=== PATIENT | male | born 1985 | race African-American/Black ===

== ENCOUNTER 2018-02-01 09:33 | Inpatient (IN) | payer OTHER ==
[~2018-02-01] VITALS: Ht 185.4 cm; Wt 60.9 kg
[~2018-02-01 09:33] MED LIST: CARBAMIDE15 ML OTIC; CYCLOBENZAPRINE10 M1 PO; DIAZEPAM5 M1 PO; DULOXETINE HCL60 MG PO; VALIUM5 M2 PO
--- NOTE | 2018-02-01 09:49 | ED PSYCHIATRIC COMPLAINT ---
History of Present Illness General Chief Complaint: Psychiatric Related Complaint Stated Complaint: "PT WANTS TO HARM OTHERS" Source: patient Exam Limitations: no limitations Vital Signs & Intake/Output Vital Signs & Intake/Output Vital Signs Date Time Temp Pulse Resp B/P B/P Pulse O2 O2 Flow FiO2 Mean Ox Delivery Rate 02/02 0844 98.3 64 16 101/70 97 02/02 0618 97.5 79 18 99/55 98 Room Air 02/02 0430 97.1 76 18 113/64 98 Room Air 02/02 0204 76 16 110/62 98 Room Air 02/01 2208 97.3 90 18 116/68 99 Room Air 02/01 2036 96.8 81 18 119/68 100 Room Air 02/01 1745 97.4 90 18 123/76 100 Room Air 02/01 1416 98.2 76 18 116/82 98 Room Air ED Intake and Output 02/02 0000 02/01 1200 Intake Total Output Total Balance Patient 140 lb Weight Weight Reported by Patient Measurement Method Allergies Coded Allergies: NO KNOWN ALLERGIES (07/30/13) Reconcile Medications Carbamide Peroxide (Carbamide) 6.5 % DROPS 1 GTT OTIC BID EAR WAX Cyclobenzaprine HCl 10 MG TABLET 1 TAB PO QAM MUSCLE RELAXER (Reported) Diazepam 5 MG TABLET 10 MG PO QHS MUSCLE SPASMS (Reported) Diazepam (Valium) 5 MG TABLET 0.5 TAB PO QAM MUSCLE SPASMS (Reported) Duloxetine HCl 60 MG CAPSULE.DR 120 MG PO DAILY TURRETS (Reported) Triage Note: PT PRESENTED TO TRIAGE, STATES, "I WANT TO KILL SOMEBODY". "I WANT TO BE PUT AWAY.". AGITATED ANSWERING QUESTIONS, BUT IS CO-OPERATIVE. DENIES DRUG USE, DRANK ALCOHOL LAST PM. DENIES SI. Triage Nurses Notes Reviewed? yes HPI: Patient presents to the emergency department with homicidal ideations. Patient states that he does want to kill society. There is nonspecific person. He denies any suicidal ideations. Patient states that he needs to be on medications but he is not on anything. Patient admits to drinking last night and using cocaine 2 days ago. Patient denies any chest pain. Patient is refusing to make eye contact and is being uncooperative. (Ramón AMARAL,Tien Tirado) Past History Travel History Traveled to [place] past 21 day No Medical History Any Pertinent Medical History? see below for history Neurological: Tourette syndrome EENT: NONE Cardiovascular: NONE Respiratory: NONE Gastrointestinal: NONE Hepatic: NONE Renal: NONE Musculoskeletal: NONE Psychiatric: NONE Endocrine: NONE History of MRSA: No History of VRE: No History of CDIFF: No Surgical History Surgical History: unobtainable, NONE Psychosocial History Who do you live with Sister Services at Home Nursing What is your primary language Argentine Tobacco Use: Never used ETOH Use: occasional use Illicit Drug Use: cocaine Family History Family History, If Any: MOTHER Relation not specified for: FH: thyroid disease Hx Contributory? No (Tien Melgar MD) Review of Systems Review of Systems Constitutional: Reports: no symptoms. EENTM: Reports: no symptoms. Respiratory: Reports: no symptoms. Cardiovascular: Reports: no symptoms. GI: Reports: no symptoms. Genitourinary: Reports: no symptoms. Musculoskeletal: Reports: no symptoms. Skin: Reports: no symptoms. Neurological/Psychological: Reports: see HPI. Hematologic/Endocrine: Reports: no symptoms. Immunologic/Allergic: Reports: no symptoms. All Other Systems: Reviewed and Negative (Ramón AMARAL,Tien Tirado) Physical Exam Physical Exam General Appearance: well developed/nourished, alert, awake Head: atraumatic Eyes: Bilateral: PERRL, EOMI. Ears, Nose, Throat: normal pharynx, normal ENT inspection, hearing grossly normal Neck: normal inspection, supple Respiratory: normal breath sounds Cardiovascular: regular rate/rhythm Gastrointestinal: soft, non-tender Extremities: normal range of motion Neurological/Psychiatric: no motor/sensory deficits, awake, agitated, alert, oriented x 3 Appearance/Memory/Insight: appropriate appearance Behavoir/Eye Contact/Speech: avoids eye contact, uncooperative Thoughts/Hallucinations: normal thought pattern, no apparent hallucination Skin: intact, normal color, warm/dry SAD PERSONS Done? CRISIS CONSULT OBTAINED (Ramón AMARAL,Tien Tirado) Progress Differential Diagnosis: drug intoxication, drug overdose, drug withdrawal, electrolyte abnormality Plan of Care: Orders Procedure Date/time Status Regular Diet 02/02 D Active ED Holding Orders 02/02 1222 Active Admit to inpatient 02/02 1222 Active Code Status 02/02 122 Active Continuous Observation Monitor 02/02 0700 Active Regular Diet 02/01 D Complete Current Medications Sig/Henry Start time Last Medication Dose Stop Time Status Admin Trazodone HCl 50 MG AT BEDTIME 02/01 2100 UNVr 02/01 (Desyrel) 1938 Diphenhydramine HCl 50 MG ONCE ONE 02/01 1000 CAN (Benadryl) 02/01 1001 Haloperidol 5 MG ONCE ONE 02/01 1000 CAN (Haldol) 02/01 1001 Lorazepam 2 MG ONCE ONE 02/01 1000 CAN (Ativan) 02/01 1001 Initial ED EKG: NSR, nonspecific ST T wave chg Prior EKG: unchanged Hand-Off Endorsed To: Markie Cintron MD Endorsed Time: 1899 Pending: consult (BED SEARCH) Comments: Patient has been seen and evaluated by the etl developer. A bed search is underway. (Tien Melgar MD) Hand-Off Endorsed To: Finn Reyes DO Endorsed Time: 699 Pending: consult (Markie Cintron MD) Comments: I assumed care of this patient at shift change while awaiting definitive evaluation by crisis. They did see the patient and they have made the decision to hospitalize him to their service for further workup. Stable for the duration of his emergency department care. (Finn Reyes DO) Departure Departure Disposition: STILL A PATIENT Condition: Stable Clinical Impression Primary Impression: Depression Referrals: Mal Marley APRN (PCP/Family) Departure Forms: Customer Survey General Discharge Information (Tien Melgar MD) Finn Reyes DO Endorsed Time: 699 Pending: consult (Markie Cintron MD) Departure Departure Disposition: STILL A PATIENT Condition: Stable Clinical Impression Primary Impression: Depression Referrals: Mal Marley APRN (PCP/Family) Departure Forms: Customer Survey General Discharge Information (Tien Melgar MD)
[2018-02-01 10:23] LABS: ABSOLUTE BASOPHIL COUNT 0 /CUMM (0.0-0.2); ABSOLUTE EOSINOPHIL COUNT 0.5 /CUMM (0.0-0.7); ABSOLUTE GRANULOCYTE CT 2.8 /CUMM (1.4-6.5); ABSOLUTE LYMPH COUNT 1.6 /CUMM (1.2-3.4); ABSOLUTE MONOCYTE COUNT 0.5 /CUMM (0.10-0.60); BASOPHIL % 0.4 % (0.0-2.0); EOSINOPHIL % 8.9 % (0-5); GRANULOCYTE % 51.1 % (42.2-75.2); HEMATOCRIT 41.2 % (42-52); MEAN CORPUSCULAR HGB 30.6 PG (27.0-31.0); MEAN CORPUSCULAR HGB CONC 33.2 G/DL (33.0-37.0); MEAN CORPUSCULAR VOLUME 92.4 FL (80.0-94.0); MEAN PLATELET VOLUME 8.1 FL (7.4-10.4); PLATELET COUNT 252 /CUMM (130-400); RBC DISTRIBUTION WIDTH 14.2 % (11.5-14.5); RED BLOOD CELL CT 4.46 /CUMM (4.70-6.10); WHITE BLOOD CELL COUNT 5.4 /CUMM (4.8-10.8)
--- NOTE | 2018-02-01 11:57 | ED PSYCH CRISIS CONSULTATION ---
Crisis Consult Basic Assessment Date of Consult: 02/01/18 Responsible Person/Accompanied By: self Insurance Authorization: Insurance #1: Insurance name: NENA AGUILAR Phone number: Policy number: [id number] Group number: Authorization number: ED Provider: Patient's ED Provider: Tien Melgar MD Primary Care Physician: Patient's PCP: Mal Marley APRN PCP's Current Psychiatrist: n/a Chief Complaint: Psychiatric Related Complaint Patient's Quote: "I want to hurt somebody." Present Illness: The pt is a 32yo single male who walked to [place] and stated I want to kill somebody. During this assessment the pt presented alert, oriented and irritable. The pt made poor eye contact, his speech was goal directed. The pt stated I want to hurt somebody and denied any specific targets or plan. The pt denies SI, AH and VH. The pt reports SI in the past without plan or intent. The pt presents as hopeless and helpless. The pt reports poor sleep for the past 2 months, poor concentration and poor appetite. The pt made loud grunting sounds several times during this assessment that he stated are part of his Tourettes Disorder. The pt stated when he is off drugs he has no problems with his appetite. The pt reports he has been on the street for days and has no support. The pt stated he is homeless and has been staying at night with either his sister or other acquaintances. The pt reports his sisters are junkies and not a support. The pt reports he will not harm himself stating I love my kids and love myself. The pt denies any past inpatient or outpatient behavioral health treatment. The pt reports he was referred to [facility] for outpatient substance abuse treatment but did not engage due to his drug use. The pt reports he was prescribed Cymbalta by [facility] but did not take it due to his drug use. The pt stated he was prescribed Diazepam for sleep while in [facility]. The pt reports he recently tried unsuccessfully to admit himself to several inpatient drug facilities. The pt reports he has an intake with [facility] in February. C-SSRS completed and placed in the pts chart. The pts toxicology screen is positive for Cocaine and Cannabis. The pt reports his primary drug is cocaine which he smokes and snorts. The pt reports his last use was in the evening on 02/02/18. The pt stated he has been using approximately $130 of cocaine daily. The pt refused to discuss how he generates income. The pt stated he does not use Heroin daily and denies experiencing Heroin withdrawal. The pt reports he last used Heroin 4 days ago. The pt denies ever being on Suboxone or Methadone. The pt reports he inconsistently smokes marijuana and inconsistently drinks alcohol. The pt has several past presentations to [facility] ED for complaints related to his drug use. The pt tested positive for Opiates, Cocaine and Cannabis during these past ED visits. The pt reports he was released from [facility] July 2017 on drug related charges. The pt reports he was afraid he would be sent back to [facility] due to Care stating the pt was not cooperating with them. The pt reports this claim was false and he did not end up returning to [facility]. The pt stated his next court date is 02/04/18. The pt reports he was doing well until his drug use became out of control at approximately age 28. The pt reports he lost his apartment and does not have contact with his 2 children due to his drug use. The pt reports he has an 8yo girl and 4yo son that each live with their mothers. Pts current presentation and hx discussed with Dr. Ruiz, plan is for inpatient admission. Dr. Ruiz stated the pt is to be placed on a PEC if he disagrees with hospitalization. The pt stated he is in agreement with inpatient treatment. Discussed a bed search will be conducted due to no beds available at [facility]. Patient's Address: [address] [place] [address] [place] [address] Other Phone Number: Who Do You Live With? Sister Family/Informants Interviewed: no family/collateral ID'd Allergies - Coded Allergies: NO KNOWN ALLERGIES (07/30/13) Current Medications - Scheduled Medications Carbamide Peroxide (Carbamide) 6.5 % DROPS 1 GTT OTIC BID EAR WAX 7 Days Prescribed by Kim Solomon on 06/17/17 Cyclobenzaprine HCl 10 MG TABLET 1 TAB PO QAM MUSCLE RELAXER #30 (Reported) Entered as Reported by Lindsay Yeh on 09/30/17 2052 Diazepam 5 MG TABLET 10 MG PO QHS MUSCLE SPASMS #75 (Reported) Entered as Reported by Lindsay Yeh on 06/14/172050 Diazepam (Valium) 5 MG TABLET 0.5 TAB PO QAM MUSCLE SPASMS (Reported) Entered as Reported by Lindsay Yeh on 06/14/172050 Duloxetine HCl 60 MG CAPSULE.DR 120 MG PO DAILY TURRETS #60 (Reported) Entered as Reported by Lindsay Yeh on 06/14/172049 Laboratory Results: Laboratory Tests 02/01/18 1010: Serum Alcohol < 10.0 02/01/18 1010: Anion Gap 11, Estimated GFR > 60, BUN/Creatinine Ratio 14.4, Glucose 94, Calcium 9.4, Total Bilirubin 0.3, AST 22, ALT 12 L, Alkaline Phosphatase 80, Troponin I < 0.01, Total Protein 7.3, Albumin 4.4, Globulin 2.9, Albumin/Globulin Ratio 1.5 , CBC w Diff NO MAN DIFF REQ, RBC 4.46 L, MCV 92.4, MCH 30.6, MCHC 33.2, RDW 14.2, MPV 8.1, Gran % 51.1, Lymphocytes % 30.1, Monocytes % 9.5 H, Eosinophils % 8.9 H, Basophils % 0.4, Absolute Granulocytes 2.8, Absolute Lymphocytes 1.6, Absolute Monocytes 0.5, Absolute Eosinophils 0.5, Absolute Basophils 0, Urine Opiates Screen 148, Methadone Screen 40, Barbiturate Screen 62, Ur Phencyclidine Scrn < 6.00, Amphetamines Screen < 100, U Benzodiazepines Scrn < 85, Urine Cocaine Screen > 1000.0 H, Urine Cannabis Screen > 80.00 H, Urinalysis MOD H, Urine Color YEL, Urine Clarity CLDY H, Urine pH 8.0, Ur Specific Edison 1.020, Urine Protein NEG, Urine Ketones NEG, Urine Nitrite NEG, Urine Bilirubin NEG, Urine Urobilinogen 0.2, Ur Leukocyte Esterase NEG, Ur Microscopic SEDIMENT EXAMINED, Urine Hemoglobin NEG, Urine Glucose NEG (Daryl Mueller) Past History Past Medical History Neurological: Tourette syndrome EENT: NONE Cardiovascular: NONE Respiratory: NONE Gastrointestinal: NONE Hepatic: NONE Renal: NONE Musculoskeletal: NONE Psychiatric: NONE Endocrine: NONE Past Surgical History Surgical History: unobtainable, NONE Psychosocial History Strengths/Capabilities: Requesting help, in agreement with plan for treatment, able to articulate needs Physical Limitations (Interventions): Current hearing loss Psychiatric Treatment History Psych Treatment Psychiatric Treatment No Diagnosis by History: Tourette's Syndrome Substance Use/Abuse History Drug Use/Abuse 1 Substances Used/Abused Yes Substance Used/Abused Crack Cocaine First Use age 28 Last Used 01/31/18 How much used/taken $130 per day (cocaine and crack) How often daily For how long 4 years Route of use inhale Drug Use/Abuse 2 Substances Used/Abused Yes Substance Used/Abused Cocaine First Use age 28 Last Used 01/31/18 How much used/taken $130 per day (crack and cocaine) How often daily For how long 4 years Route of use snort Drug Use/Abuse 3 Substances Used/Abused Yes Substance Used/Abused Marijuana First Use pt unsure Last Used 01/31/18 How much used/taken Pt unable to quantify, reports "small amount" How often pt reports 1-2x per week For how long pt reports a long hx Route of use inhale Drug Use/Abuse 4 Substances Used/Abused Yes Substance Used/Abused Heroin First Use pt reports age 30 Last Used pt reports 4 days ago How much used/taken pt reports 1 bag How often pt reports his use has declined to 1x per week For how long 2 years Route of use snort Drug Use/Abuse 5 Substances Used/Abused Yes Substance Used/Abused Alcohol First Use pt unsure Last Used 01/31/18 How much used/taken pt reports usually 1-2 beers How often 1-2x per week For how long pt reports a long hx Route of use ingest Substance Abuse Treatment Substance Abuse Treatment Past Substance Abuse TX Yes Inpatient Treatment No Outpatient Treatment Yes Location of Treatment Pt reports [facility] Reason for Treatment Cocaine, Heroin Dates of Treatment pt reports last date within 6 months ago Response to Treatment poor (Sammi WALKER,Daryl Ortega) Current Mental Status Mental Status Orientation: Person, Place, Situation Affect: Angry (Irritable), Depressed, Hopeless, Sad Speech: WNL Neuro-vegetative: Anhedonia, Appetite Decreased, Concentration Poor, Helpless, Sleep Disturbance Appearance Appearance- Dress/Hygiene: appropriate Behaviors Thought Process: WNL Thought Content: WNL Memory: WNL Insight: Poor SI/HI Risk Assessment Past Suicidal Ideation/Attempts Yes Current Suicidal Ideation/Att No Past Homicidal Ideation/Att: No Current Homicidal Ideation/Attempts Yes Degree of Intent: Thoughts/No Intent Danger To: Others Gravely Disabled: Inability, Lack of Insight, Poor Impulse Control, Poor Judgment Risk Factors: high anxiety/distress, substance abuse, isolate/no social support, poor impulse control, lack of outcome concern, male, limited support Lethality Ratin PTSD Checklist PTSD Done? patient declined ED Management Sitter: Yes Restraints: No (Daryl Mueller) DSM5/PS Stressors/Medical Prob Diagnosis' (DSM 5, Stressors, Medical): F32.9 Unspecified Depressive Dis F14.20 Stimulant Use Disorder, Cocaine, Severe F11.20 Opioid Use Disorder, Moderate Current GAF: 29 (Daryl Mueller) Departure Disposition Psych Medical Clearance Date: 02/01/18 Medically Cleared at: 1030 Time Started: 1030 Time Ended: 1110 Psychiatrist Consulted: Dr. Ruiz Date Disposition Established: 02/01/18 Time Disposition Established: 1130 Plan for Disposition - Modality: Bed Search Rationale for Disposition: Pt presents with significant risk factors requiring hospitalization. Type of IP Admission: Voluntary Referrals Mal Marley APRN (PCP/Family) (Daryl Mueller) Addendum Addendum Evening shift evaluation: Pt states he hasn't slept in days and "needs something to sleep, my chest is hurting and I've a few days ago I was here because I couldn't feel my feet", he offers "I know you all think I'm bugging out but I need to sleep". Dr. Melgar ordered Trazodone and it was administered. Pt remains a bed search, he is aware. (Margot Everett LCSW) Addendum 02/02/18: Pt was laying on his bed with eyes closed. When asked if he was sleeping he stated "yes". Crisis asked patient how his night was and pt said ok. When asked if the Trazodone helped him sleep he stated no. It should be noted that per patient notes, patient was sleeping from approximately 11pm to 6am. Pt continues to report sleep disturbances. Pt reports nothing has changed since yesterday when asked about thoughts to hurt people. He denies SI today as he did yesterday. Bed Search vs admission to [facility] based on bed availabilty today. (Steph CUEVAS,Monet)
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
[2018-02-02 13:11] VITALS: BP 125/66
[2018-02-02 15:43] VITALS: BP 122/76
--- NOTE | 2018-02-02 15:53 | SOCIAL WORKER SOCIAL HX PSYCH ---
Social History Basic Assessment Insurance Authorization: Insurance #1: Insurance name: [employer] [facility] Phone number: Policy number: [id number] Group number: Authorization number: Curr Source of Income/Entitlements: SSDI Primary Care Physician: Patient's PCP: Mal Marley APRN PCP's Present Problem: The pt is a 32yo single male who walked to [place] and stated I want to kill somebody. During this assessment the pt presented alert, oriented and irritable. The pt made poor eye contact, his speech was goal directed. The pt stated I want to hurt somebody and denied any specific targets or plan. The pt denies SI, AH and VH. The pt reports SI in the past without plan or intent. The pt presents as hopeless and helpless. The pt reports poor sleep for the past 2 months, poor concentration and poor appetite. The pt made loud grunting sounds several times during this assessment that he stated are part of his Tourettes Disorder. The pt stated when he is off drugs he has no problems with his appetite. The pt reports he has been on the street for days and has no support. The pt stated he is homeless and has been staying at night with either his sister or other acquaintances. The pt reports his sisters are junkies and not a support. The pt reports he will not harm himself stating I love my kids and love myself. The pt denies any past inpatient or outpatient behavioral health treatment. The pt reports he was referred to [facility] for outpatient substance abuse treatment but did not engage due to his drug use. The pt reports he was prescribed Cymbalta by [facility] but did not take it due to his drug use. The pt stated he was prescribed Diazepam for sleep while in [facility]. The pt reports he recently tried unsuccessfully to admit himself to several inpatient drug facilities. The pt reports he has an intake with [facility] in February. C-SSRS completed and placed in the pts chart. The pts toxicology screen is positive for Cocaine and Cannabis. The pt reports his primary drug is cocaine which he smokes and snorts. The pt reports his last use was in the evening on 02/02/18. The pt stated he has been using approximately $130 of cocaine daily. The pt refused to discuss how he generates income. The pt stated he does not use Heroin daily and denies experiencing Heroin withdrawal. The pt reports he last used Heroin 4 days ago. The pt denies ever being on Suboxone or Methadone. The pt reports he inconsistently smokes marijuana and inconsistently drinks alcohol. The pt has several past presentations to [facility] ED for complaints related to his drug use. The pt tested positive for Opiates, Cocaine and Cannabis during these past ED visits. The pt reports [facility] on drug related [facility]. The pt reports he was afraid he would be sent back to [facility] due to Care stating the pt was not cooperating with them. The pt reports this claim was false and he did not end up returning to [facility]. The pt stated his next court date is 02/04/18. The pt reports he was doing well until his drug use became out of control at approximately age 28. The pt reports he lost his apartment and does not have contact with his 2 children due to his drug use. The pt reports he has an 8yo girl and 4yo son that each live with their mothers. Primary Language? Solomon Islander Language(s) Spoken At Home: [place] Islander Living Situation Rents or Owns Home? rents (Stays with friends) Other Living Arrangement: stays with friends Feel Safe Where You Are Living Yes Feel Safe in Relationships? Yes Comments: Pt stated that he doesn't have friends. He has associates. Allergies - Coded Allergies: NO KNOWN ALLERGIES (NONE 02/02/18) Current Medications - Scheduled Medications Carbamide Peroxide (Carbamide) 6.5 % DROPS 1 GTT OTIC BID EAR WAX 7 Days Prescribed by Kim Solomon on 06/17/17 Cyclobenzaprine HCl 10 MG TABLET 1 TAB PO QAM MUSCLE RELAXER #30 (Reported) Entered as Reported by Lindsay Yeh on 06/14/172051 Diazepam 5 MG TABLET 10 MG PO QHS MUSCLE SPASMS #75 (Reported) Entered as Reported by Lindsay Yeh on 06/14/172050 Diazepam (Valium) 5 MG TABLET 0.5 TAB PO QAM MUSCLE SPASMS (Reported) Entered as Reported by Lindsay Yeh on 06/14/172050 Duloxetine HCl 60 MG CAPSULE.DR 120 MG PO DAILY TURRETS #60 (Reported) Entered as Reported by Lindsay Yeh on 06/14/172049 Past History Past Medical History Neurological: Tourette syndrome EENT: NONE Cardiovascular: NONE Respiratory: NONE Gastrointestinal: NONE Hepatic: NONE Renal: NONE Musculoskeletal: NONE Psychiatric: NONE Endocrine: NONE Past Surgical History Surgical History: unobtainable, NONE /Family History Place/Country of Origin: [place], [place] Childhood Family Constellation: Pt lived with mother and 6 siblings for periods. At grade school age pt was sent to foster care and various group homes. Mother was a substance abuser. Father was absent. Primary Childhood Caretakers: foster care and group homes. Family Life During Childhood: Pt was in and out of foster care and group homes. DCF Involvement? Yes Explain: Pt was taken away from mother due to mother's substance abuse. Relationship w/Mother: Pt has an okay relationship with mother now but blames her due to her substance abuse history and abandonment. Relationship w/Father: Pt does not have a relationship with father Any Sibling(s)? Yes Sibling's Gender(s)/Age(s): female Sibling 1:, female Sibling 2:, male Sibling 3:, female Sibling 4:, male Sibling 5: Relationship w/Sibling(s): Pt stated he has 4 sisters and 2 brothers. Relationship with siblings is okay. Relationship w/Friends: Pt stated that he doesn't have friends. He calls them associates. Family Psych/Sub Abuse/Add Hx: drug of choice Other Comments: Pt stated that mother has a substance abuse problem as well as some of his siblings. Abuse/Trauma History Trauma History/Current Trauma: Denies History of Trauma/Abuse Treatment? No Legal History Legal Guardian/Address/Phone: n/a Current Legal Status: Has court on 02/04/18 for sales of narcotics charge. Pt also stated that although he is not on probabtion he has to see an officer regularly. Pending Court Dates: 02/04/18 Have you ever been arrested Yes Number of Arrests: 3 Hx of Juvenile Legal Charges? Yes If Yes: unknown Hx of Adult Legal Charges? Yes If Yes: misdemeanor, felony List/Date Most Recent Lgl Chgs: Court on 02/04/18 for Sales of Narcotics charge. Chgs/Dts/Incarcerations/Sentnc Pt stated that he has been incarcerated in the past. Civil Proceedings: None reported. Domestic Relations Court: Unknown Child Protective Serv Involvmnt None Drafter Topographical Name unknown Psychosocial History Primary Support System: No supports. Pt stated that he is involved with DDS services. Strengths/Capabilities: Requesting help, in agreement with plan for treatment, able to articulate needs Weaknesses: Significant substance abuse and criminal history. Physical Limitations (Interventions): Current hearing loss Last Physical: A few months ago History of Seizures? No History of Blackouts? No ADL Limitations: None reported. Roy/Social/Peer Relations Pt stated that he does not have friends. He calls them associates. Meaningful Activities: Pt stated that music is his life and he tries to read. Childhood Roman Catholic: no yarsani stated Current Confucianist Affiliation: no yarsani stated Is Spirituality Important to You? No Patient's Ethnicity: Cultural/Ethnic Issues: None reported. Are There Developmental Issues? Yes If Yes, Explain: Pt stated that he has DDS services. Also Tourette's Psychiatric Treatment History Psych Treatment Inpatient Treatment No Diagnosis: Tourette's Syndrome Risk Factors: substance abuse, isolate/no social support, poor impulse control, lack of outcome concern, male, limited support Substance Use/Abuse History Drug Use/Abuse:Min 12 mo hx Substance Used/Abused Heroin First Use 30 Last Used 5 days ago How much used/taken 1 bag How often decreased to 1x/week For how long 2 years Route of use snort Have Had Periods of Sobriety? No Explain: Pt stated that he has not had significant periods of sobriety. Explain: Pt has not had significant periods of sobriety. Have You Ever Attended AA? No Do You Attend AA Currently? No Do You Have a Sponsor? No Other Community Resources Used: None reported. Symptoms of Use: cocaine is drug of choice, last using $130 worth of cocaine on 02/01/18. Pt was also positive for marijuana. Substance Abuse Treatment Substance Abuse Treatment Inpatient Treatment No Outpatient Treatment Yes Location of Treatment Pt reports [facility] Reason for Treatment Cocaine, Heroin Dates of Treatment pt reports last date within 6 months ago Response to Treatment poor Sexual History Sexual Concerns: None known Education History Highest Level of Education: Pt stated that he completed the 8th grade. Highest Grade Completed: 8 Vocational Year Completed: n/a Number of College Years: 0 College Degree/Major: n/a Other Degree(s): None. HX of Learning Difficulties: Learning Disabilities Barriers to Learning: Difficulty learning Special Communication Needs: None reported Employment History Employment Disability Not in Labor Force: Disabled Vocation/Occupational Hx: Pt stated he had worked at [employer] in past. No. of Jobs in Last 5 Years: 2 Attendance: Absenteeism Performance: Average History Have You Been in The ? No Current Mental Status Mental Status Orientation: Person, Place, Situation Affect: Hopeless, Sad Speech: Soft, WNL Neuro-vegetative: Anhedonia, Appetite Decreased, Concentration Poor, Energy Decreased, Helpless, Sleep Disturbance Appearance Appearance- Dress/Hygiene: appropriate, pt showered this morning Behaviors Thought Process: WNL Thought Content: WNL Memory: WNL Insight: Poor SI/HI Risk Assessment Past Suicidal Ideation/Attempts Yes Current Suicidal Ideation/Att No Past Homicidal Ideation/Att: No Current Homicidal Ideation/Attempts Yes Degree of Intent: Thoughts/No Intent Danger To: Others Gravely Disabled: Inability, Lack of Insight, Poor Impulse Control, Poor Judgment Risk Factors: High Anxiety/Distress, Isolated/no social suppor, Male, Poor impulse control, Substance Abuse Lethality Ratin - Conclusion and Recommendations for treatment - and discharge planning
[2018-02-02 19:45] VITALS: BP 117/77
[2018-02-03 08:13] VITALS: BP 108/60
--- NOTE | 2018-02-03 09:07 | History & Physical ---
General Information and HPI MD Statement: I have seen and personally examined CHRIS CARRILLO and documented this H&P. The patient is a 32 year old M who presented with a patient stated chief complaint of want to harm others. "I want to be put away". Source of Information: patient Exam Limitations: unable to give history History of Present Illness: 32-year-old black male states he needs to be on medications but is not on anything. Had alcohol admission and using cocaine 2 days ago. He feels hopeless and helpless and has had poor sleep for 2 months, poor concentration poor appetite patient has Tourette's disorder is admitted for evaluation and treatment. Allergies/Medications Allergies: Coded Allergies: NO KNOWN ALLERGIES (NONE 02/02/18) Home Med list Carbamide Peroxide (Carbamide) 6.5 % DROPS 1 GTT OTIC BID EAR WAX Cyclobenzaprine HCl 10 MG TABLET 1 TAB PO QAM MUSCLE RELAXER (Reported) Diazepam 5 MG TABLET 10 MG PO QHS MUSCLE SPASMS (Reported) Diazepam (Valium) 5 MG TABLET 0.5 TAB PO QAM MUSCLE SPASMS (Reported) Duloxetine HCl 60 MG CAPSULE.DR 120 MG PO DAILY TURRETS (Reported) Compliance With Home Meds: UNKNOWN Past History Travel History Traveled to [place] past 21 day No Medical History Neurological: Tourette syndrome EENT: NONE Cardiovascular: NONE Respiratory: NONE Gastrointestinal: NONE Hepatic: NONE Renal: NONE Musculoskeletal: NONE Psychiatric: NONE Endocrine: NONE History of MRSA: No History of VRE: No History of CDIFF: No Isolation History: Standard Surgical History Surgical History: unobtainable, NONE Past Family/Social History Family History Relations & Conditions if any MOTHER Relation not specified for: FH: thyroid disease Psychosocial History Services at Home: Nursing ETOH Use: occasional use Illicit Drug Use: cocaine Functional Ability ADLs Independent: dressing, eating, toileting, bathing. Ambulation: independent IADLs Independent: shopping, housework, finances, food prep, telephone, transportation , medication admin. Employment History Employment Disability Profession/Employer Pt stated he had worked at [employer] in past. Review of Systems Review of Systems Constitutional: Reports: see HPI. Exam & Diagnostic Data Last 24 Hrs of Vital Signs/I&O Vital Signs Date Time Temp Pulse Resp B/P B/P Pulse O2 O2 Flow FiO2 Mean Ox Delivery Rate 02/03 0813 97.0 88 108/60 02/02 1945 98.8 86 117/77 02/02 1543 82 122/76 02/02 1311 97.6 90 125/66 02/02 1310 Room Air 02/02 1224 97.0 82 18 115/72 100 Room Air Intake & Output 02/03 1600 02/03 0800 02/03 0000 Intake Total Output Total Balance Patient 134 lb Weight Physical Exam General Appearance Alert, Oriented X3, Cooperative, thin Skin No Rashes HEENT PERRLA, EOMI, Mucous Membr. moist/pink Neck Supple, No JVD, No thryomegaly, +2 Carotid Pulse wo Bruit, No LAD Lymphatic Axillary nl, Cervical nl Cardiovascular Regular Rate, No Murmurs Lungs Clear to Auscultation, Normal Air Movement Abdomen Soft, No Tenderness, No Hepatospenomegaly Neurological Exam Findings: Normal Gait, Strength at 5/5 X4 Ext, Normal Tone, Sensation Intact, Cranial Nerves 3-12 NL, Reflexes 2+, outburst of loud voices at times Cranial Nerves II through XII: Intact Extremities No Edema, Normal Pulses Vascular Normal Pulses, Pulses Symmetrical Last 24 Hrs of Labs/Ermias: Laboratory Tests 02/02/18 1905: Troponin I < 0.01 02/01/18 1010: Serum Alcohol < 10.0 02/01/18 1010: Anion Gap 11, Estimated GFR > 60, BUN/Creatinine Ratio 14.4, Glucose 94, Calcium 9.4, Total Bilirubin 0.3, AST 22, ALT 12 L, Alkaline Phosphatase 80, Troponin I < 0.01, Total Protein 7.3, Albumin 4.4, Globulin 2.9, Albumin/Globulin Ratio 1.5 , CBC w Diff NO MAN DIFF REQ, RBC 4.46 L, MCV 92.4, MCH 30.6, MCHC 33.2, RDW 14.2, MPV 8.1, Gran % 51.1, Lymphocytes % 30.1, Monocytes % 9.5 H, Eosinophils % 8.9 H, Basophils % 0.4, Absolute Granulocytes 2.8, Absolute Lymphocytes 1.6, Absolute Monocytes 0.5, Absolute Eosinophils 0.5, Absolute Basophils 0, Urine Opiates Screen 148, Methadone Screen 40, Barbiturate Screen 62, Ur Phencyclidine Scrn < 6.00, Amphetamines Screen < 100, U Benzodiazepines Scrn < 85, Urine Cocaine Screen > 1000.0 H, Urine Cannabis Screen > 80.00 H, Urinalysis MOD H, Urine Color YEL, Urine Clarity CLDY H, Urine pH 8.0, Ur Specific [place] 1.020, Urine Protein NEG, Urine Ketones NEG, Urine Nitrite NEG, Urine Bilirubin NEG, Urine Urobilinogen 0.2, Ur Leukocyte Esterase NEG, Ur Microscopic SEDIMENT EXAMINED, Urine Hemoglobin NEG, Urine Glucose NEG Laboratory Tests 02/02/18 1905: Troponin I < 0.01 Diagnostic Data EKG Results Unofficial EKG shows some ST T abnormalities Assessment/Plan As Ranked By This Provider Problem List: 1. Depression 2. Chest pain 3. Polysubstance dependence 4. Tourette syndrome Miscellaneous Miscellaneous Documentation Attending Case Discussed With: Diane AMARAL,Ramses Primary Care Physician: Mal Marley APRN Patient sees these Specialists Psychiatry Level of Patient Care: JOO Reilly Consults Needed: Consulting Specialty: Psychiatry Consulting Physician: Dr Olson Reason for Consult: depression, polysubstance abuse
--- NOTE | 2018-02-03 11:01 | SOCIAL WORKER PROG NOTE PSYCH ---
Social Work Progress Note Progress Note Pt was sleeping most of the day, hard to arouse, somnolent and not able to participate in conversation at this time.
[2018-02-03 11:55] VITALS: BP 105/65
--- NOTE | 2018-02-03 11:55 | Cons- Cardiology ---
General Information and HPI Consulting Request Date of Consult: 02/03/18 Requested By: Ramses Contreras MD Reason for Consult: Chest pain and EKG changes Source of Information: patient, old records Exam Limitations: no limitations History of Present Illness: Patient is a 32 yo black M with a history of polysubstance abuse, Tourettes syndrome, who is admitted to Inpatient Psychiatry stating he wanted to kill somebody. He has a long history of cocaine, cannabis, and alcohol abuse. He states that he used cocaine approximately 2 days ago. States that he has been having intermittent episodes of sharp chest pain denies fever or chills. He states that the pain is worse with inspiration and with movement but is also tender to palpation. He was seen in the ER a few days ago with chest discomfort that was atypical. Troponin was negative and EKG did not demonstrate any acute changes at that time. The patient signed out AMA. He states that yesterday he had an episode of chest discomfort but currentlyis asymptomatic. Allergies/Medications Allergies: Coded Allergies: NO KNOWN ALLERGIES (NONE 02/02/18) Home Med List: Carbamide Peroxide (Carbamide) 6.5 % DROPS 1 GTT OTIC BID EAR WAX Cyclobenzaprine HCl 10 MG TABLET 1 TAB PO QAM MUSCLE RELAXER (Reported) Diazepam 5 MG TABLET 10 MG PO QHS MUSCLE SPASMS (Reported) Diazepam (Valium) 5 MG TABLET 0.5 TAB PO QAM MUSCLE SPASMS (Reported) Duloxetine HCl 60 MG CAPSULE.DR 120 MG PO DAILY TURRETS (Reported) Current Medications: Current Medications Sig/Henry Start time Last Medication Dose Route Stop Time Status Admin Acetaminophen 650 MG Q4P PRN 02/02 1430 AC PO Al Hydroxide/Mg 30 ML Q4-6 PRN PRN 02/02 1430 AC Hydroxide PO Fluphenazine HCl 2.5 MG Q6P PRN 02/02 1430 AC 02/03 PO 0855 Lorazepam 1 MG Q6P PRN 02/02 1430 AC 02/03 PO 0855 Magnesium Hydroxide 30 ML AT BEDTIME NEED.. 02/02 1430 AC PO Sertraline HCl 50 MG 0800 02/03 0800 AC 02/03 PO 0854 Trazodone HCl 50 MG AT BEDTIME 02/01 2100 DC 02/01 PO 1938 Review of Systems Review of Systems: Eyes no blurred or double vision Ears no deafness or ringing Nose and throat no recurrent sinusitis Lungs per history of present illness Heart per history of present illness Abdomen no nausea vomiting Musculoskeletal occasional muscle and joint pains Psych as per HPI Neuro without recurrent headache or seizures Endocrine no heat or cold intolerance Past History Travel History Traveled to [place] past 21 day No Medical History Neurological: Tourette syndrome EENT: NONE Cardiovascular: NONE Respiratory: NONE Gastrointestinal: NONE Hepatic: NONE Renal: NONE Musculoskeletal: NONE Psychiatric: NONE Endocrine: NONE Surgical History Surgical History: unobtainable, NONE Family History Relations & Conditions If Any: MOTHER Relation not specified for: FH: thyroid disease Psychosocial History Services at Home: Nursing ETOH Use: occasional use Illicit Drug Use: cocaine Functional Ability ADLs Independent: dressing, eating, toileting, bathing. Ambulation: independent IADLs Independent: shopping, housework, finances, food prep, telephone, transportation , medication admin. Employment History Employment: Disability Profession/Employer Pt stated he had worked at [employer] in past. Exam & Diagnostic Data Vital Signs and I&O Vital Signs Date Time Temp Pulse Resp B/P B/P Pulse O2 O2 Flow FiO2 Mean Ox Delivery Rate 02/03 1155 95 105/65 02/03 0813 97.0 88 108/60 02/02 1945 98.8 86 117/77 02/02 1543 82 122/76 02/02 1311 97.6 90 125/66 02/02 1310 Room Air 02/02 1224 97.0 82 18 115/72 100 Room Air Intake & Output 02/03 1600 02/03 0800 02/03 0000 02/02 1600 02/02 0800 02/02 0000 Intake Total Output Total Balance Patient 134 lb 140 lb Weight Physical Exam: Patient is a well-developed well-nourished male appearing in no acute distress HEENT is unremarkable Neck is supple there is no JVD Lungs are clear Heart regular rhythm S1 and S2 are normal no murmurs gallops or rubs there is tenderness to the anterior chest wall upon palpation Abdomen bowel sounds positive Extremities without edema Labs/Ermias Results: Laboratory Tests 02/02 1905 Chemistry Troponin I (<0.11 ng/ml) < 0.01 Diagnostic Data EKG Results Sinus rhythm nonspecific ST-T wave changes consistent with repolarization. No significant change from prior tracing Assessment/Plan Assessment/Plan 1. Atypical chest pain most likely musculoskeletal given the fact that it is reproducible. EKG did not demonstrate any significant change from prior tracing which was consistent with early repolarization. 2 troponins were negative and he refused the third. 2. Polysubstance abuse 3. Tourette's syndrome next 4. Depression Recommendation next 1. Would obtain an echocardiogram to rule out the remote possibility of a pericardial effusion causing his chest discomfort. This is highly unlikely. 2. Attempt to obtain a third troponin 3. Continue treatment for depression Thank you for allowing [facility] to participate in the care of your patient. Consult Acknowledgment - Thank you for your consult request.
--- NOTE | 2018-02-03 14:42 | CPS PROVIDER INIT ASMT PSYCH ---
Psychiatric Admission Tool Dispatcher's Note Reviewed: Yes Patient Seen and Examined: Yes Identifying Information: The pt is a 32yo single male Chief Complaint: "I want to hurt somebody." Reaction to Hospitalization: The patient was admitted voluntarily. History of Present Illness Onset of Illness: This is from the crisis social work associate's note: "pt is a 32yo single male who walked to [place] and stated I want to hurt somebody and denied any specific targets or plan. The pt presents as hopeless and helpless. The pt reports poor sleep for the past 2 months, poor concentration and poor appetite. The pt made loud grunting sounds several times during this assessment that he stated are part of his Tourettes Disorder. The pt stated when he is off drugs he has no problems with his appetite. The pt reports he has been on the street for days and has no support. The pt stated he is homeless and has been staying at night with either his sister or other acquaintances. The pt reports his sisters are junkies and not a support. The pt reports he will not harm himself stating I love my kids and love myself. treatment but did not engage due to his drug use. The pt reports he was prescribed Cymbalta by [facility] but did not take it due to his drug use. The pt stated he was prescribed Diazepam for sleep while in long term. The pt reports he recently tried unsuccessfully to admit himself to several inpatient drug facilities. The pt reports he has an intake with [facility] in February. Circumstances Leading to Admission: The pts toxicology screen is positive for Cocaine and Cannabis. The pt reports his primary drug is cocaine which he smokes and snorts. The pt reports his last use was in the evening on 02/02/18. The pt stated he has been using approximately $130 of cocaine daily. The pt refused to discuss how he generates income. The pt stated he does not use Heroin daily and denies experiencing Heroin withdrawal. The pt reports he last used Heroin 4 days ago. The pt denies ever being on Suboxone or Methadone. The pt reports he inconsistently smokes marijuana and inconsistently drinks alcohol. The pt has several past presentations to [facility] ED for complaints related to his drug use. The pt tested positive for Opiates, Cocaine and Cannabis during these past ED visits. The pt reports he was released from long term July 2017 on drug related charges. The pt reports he was afraid he would be sent back to long term due to Care stating the pt was not cooperating with them. The pt reports this claim was false and he did not end up returning to long term. The pt stated his next court date is 02/04/18. The pt reports he was doing well until his drug use became out of control at approximately age 28. The pt reports he lost his apartment and does not have contact with his 2 children due to his drug use. The pt reports he has an 8yo girl and 4yo son that each live with their mothers. Problem(s) Justifying Need for Admission: Thoughts of harming other people. Nonspecific targets. Past Psychiatric History Past Diagnosis(es)- if any: F32.9 Unspecified Depressive Dis F14.20 Stimulant Use Disorder, Cocaine, Severe F11.20 Opioid Use Disorder, Moderate Tourette's disorder by history. Past Precipitating Factors- if any: Substance use and homelessness. - Include inpatient and outpatient treatment Treatment History: The pt reports he was prescribed Cymbalta by [facility] but did not take it due to his drug use. The pt stated he was prescribed Diazepam for sleep while in long term. History of Suicide Attempts or Gestures The patient denied attempting suicide in the past. Substance Abuse History: The patient acknowledges substance use history including cannabis, alcohol, opioids, and cocaine Allergies: Coded Allergies: NO KNOWN ALLERGIES (NONE 02/02/18) Home Med List: The patient has not been on medications and while back in 2016 he was prescribed Cymbalta but it looks like he never took it. - Include any medical condition(s) that may - impact the patient's recovery/remission Past Medical History: Tourette's syndrome with vocal and motor tics Past History Medical History Neurological: Tourette syndrome EENT: NONE Cardiovascular: NONE Respiratory: NONE Gastrointestinal: NONE Hepatic: NONE Renal: NONE Musculoskeletal: NONE Psychiatric: NONE Endocrine: NONE Blood Disorders: NONE History of MRSA: No History of VRE: No History of CDIFF: No Isolation History: Standard Surgical History Surgical History: none Psychiatric Family/Social Hx Family History Psychiatric Illness: The patient's mother have psychiatric illness and was inpatient recently. Substance Use: Pretty much most of the family members have issues with substance use including his mother who uses cocaine and his sister who he is cocaine Suicides: There were no completed suicides in the family Social History Living Situation: The patient is currently homeless Significant Relationships (family/friends): Mother Education: Not explored Vocation/Occupation: Currently unemployed Legal: Was not explored Healthly Behaviors Screening Tobacco Screening Tobacco Use from ED Docu: Never used - If tobacco counseling indicated - the following topics are required. - #1 Recognizing dangerous situations. - #2 Coping Skills. - #3 Basic information about quitting. Status of Tobacco Cessation Counseling: Not Applicable Cessation Med Status Not Applicable Alcohol Screening - ETOH screen POS if BAL >=80 or Audit-C>= M4/F3 Audit-C Score from Diag Assess: 2 Blood Alcohol Level: Laboratory Tests 02/01 1010 Toxicology Serum Alcohol (<10 MG/DL) < 10.0 Alcohol Use Screening Results: Neg per Audit C &/or BAL - If ETOH counseling indicated - the following topics are required. - #1 Express concern about the patient's - drinking at unhealthy levels, include informing - of national norms for moderate drinking: - men <= 14 drinks/week, max 4 drinks/occasion - women <= 7 drinks/week, max 3 drinks/occasion - #2 Providing feedback, including linking alcohol to - negative physical effects (liver injury, hypertension) - negative emotional effects (relationship problems and - depression) - negative occupational consequences (reduced work - performance) - #3 Advising the patient to abstain from alcohol or - to drink below national norms for moderate drinking - (as listed above). Status of ETOH Use Counseling: N/A B/C NO ETOH Use Metabolic Screening - Screen if on a Neuroleptic Medication - Metabolic screening should include: - Blood Pressure, BMI, Glucose or Hgb A1c, & a - Lipid profile from within the past 365 days. Metabolic Screening Patient on a neuroleptic(s) . Enter below results for Hemoglobin A1C, and lipid panel if obtained during the last 365 days. BMI: 18.400 Blood Pressure: 105/65 Laboratory Results From [facility] (If applicable): Lab Amylase 62 U/L 12/13/17 0437 Cholesterol 157 MG/DL 04/19/16 0911 Cholesterol/HDL Ratio 3 % 04/19/16 0911 HDL Cholesterol 62 mg/dL H 04/19/16 0911 LDL Cholesterol, Calc 84 mg/dL 04/19/16 0911 Triglycerides 55 mg/dL 04/19/16 0911 Exam and Plan Mental Status Examination Ambulation Status: The patient was steady on his feet Appearance: Young thin black male Attitude towards examiner: Cooperative Psychomotor activity: Increased psychomotor activity Behavior: Patient shouts certain words including sometimes obscenities (reportedly was diagnosed with Tourette's for a number of years) Quality of speech: Normal speech except when he suddenly shouts certain words as part of his vocal tic disorder Affect: Constricted affect Mood: Reports feeling depressed and anxious Suicidal Ideation: Denied thoughts of suicide today Homicidal Ideation: Denied thoughts of homicide today Hallucinations: Denied hallucinations Paranoid/Delusional Material: Denied feeling paranoid and there were no delusions during the interview Difficulties with thought organization: Seem to be coherent, there was no thought disorder Insight: Partial insight Judgment: Judgment depends on sobriety Orientation: Alert and oriented to time, place, and person. Cognition: No significant difficulties with information processing or attention and concentration Memory Function: No significant impairment in short-term memory Estimate of intellectual functioning: Average Assets/Strengths Patient Identified Assets/Strengths: The patient is resilient and physically healthy Impression/Plan Impression and Plan: 32-year-old single black male who was admitted because of reporting thoughts of wanting to hurt someone. The patient had no specific person in mind. He has been using drugs and has been homeless living on the streets recently. - Include all active medical diagnosis that require tx DSM 5 Diagnosis(es): F32.9 Unspecified Depressive Disorder F95.9 Unspecified Tic Disorder (? Cocaine-induced Tic Disorder vs. possibly F95.2 ? Tourette's Disorder) F14.20 Stimulant Use Disorder, Cocaine, Severe F11.20 Opioid Use Disorder, Moderate F10.20 Alcohol Use Disorder, Mild F12.20 Cannabis Use Disorder, Mild - Initial Tx Plan for Active Psych & Medical Conditions Treatment Plan: Inpatient psychiatric care with 15 minute checks for safety Biopsychosocial assessment, collateral information and aftercare planning by social work The patient had an EKG, echocardiogram, and a cardiology consult because of an ST elevation in his EKG which was present in previous EKGs Sertraline 50 mg every morning Fluphenazine 2.5 mg as needed every 6 hours for vocal tics PRN Ativan for anxiety/agitation/insomnia - Factors that would help patient function - in a less restrictive setting. Factors: Patient will be discharge if she continues to deny suicidal ideation and if he has 2 consecutive days without any thoughts of hurting anybody else
[2018-02-03 16:26] VITALS: BP 134/62
[2018-02-03 19:53] VITALS: BP 142/70
--- NOTE | 2018-02-04 10:07 | ECHOCARDIOGRAM REPORT ---
GERARDO CHRIS Age: 32 : 1985 Gender: M Exam Date: 02/03/2018 12:18 Exam Location: [facility] Ht (in): 73 Wt (lb): 134 BSA: 1.75 BP: 105 / 65 Ordering Physician: Ramses Contreras MD Referring Physician: Ramses Contreras MD Technologist: Roberto Taylor [facility] Room Number: B5-01 Indications: Chest Pain Rhythm: Technical Quality: Good FINDINGS Left Ventricle Normal global left ventricular size, wall thickness, systolic function with no obvious regional wall motion abnormalities. Left ventricular ejection fraction is estimated at > 55 %. Normal left ventricular diastolic filling pattern for age. Right Ventricle Normal right ventricular size and function. Right Atrium Normal right atrial size. Left Atrium Normal left atrial size. Mitral Valve Structurally normal mitral valve. Trace mitral regurgitation. Aortic Valve Trileaflet aortic valve. No aortic stenosis. Tricuspid Valve Structurally normal tricuspid valve. Trace tricuspid regurgitation. Unable to estimate the right ventricular systolic pressure. Pulmonic Valve Pulmonic valve not well visualized, grossly normal. Pericardium No pericardial effusion. Great Vessels Normal size aortic root. CONCLUSIONS Normal global left ventricular size, wall thickness, systolic function with no obvious regional wall motion abnormalities. Left ventricular ejection fraction is estimated at > 55 %. Normal left ventricular diastolic filling pattern for age. Normal right ventricular size and function. No pericardial effusion. Andrei Matias M.D. (Electronically Signed) Final Date: 04 Feb 2018 10:06 MEASUREMENTS (Male / Female) Normal Values 2D ECHO LV Diastolic Diameter PLAX 4.1 cm 4.2 - 5.9 / 3.9 - 5.3 cm LV Systolic Diameter PLAX 2.9 cm 2.1 - 4.0 cm LV Fractional Shortening PLAX 29.3 % 25 - 46 % LV Ejection Fraction 2D Teich 56.6 % IVS Diastolic Thickness 1.1 cm LVPW Diastolic Thickness 1.1 cm LV Relative Wall Thickness 0.5 LVOT Diameter 1.9 cm Aortic Root Diameter 3.0 cm LA Systolic Diameter LX 2.4 cm 3.0 - 4.0 / 2.7 - 3.8 cm Ascending Aorta Diameter 2.6 cm DOPPLER AV Peak Velocity 121.0 cm/s AV Peak Gradient 5.9 mmHg AV Mean Velocity 76.4 cm/s AV Mean Gradient 3.0 mmHg AV Velocity Time Integral 22.0 cm LVOT Peak Velocity 90.2 cm/s LVOT Peak Gradient 3.3 mmHg LVOT Mean Velocity 48.8 cm/s LVOT Mean Gradient 1.0 mmHg LVOT Velocity Time Integral 13.8 cm LVOT Stroke Volume 39.1 cm AV Area Cont Eq vti 1.8 cm AV Area Cont Eq pk 2.1 cm MV Peak Velocity 63.4 cm/s MV Peak Gradient 1.6 mmHg MV Mean Velocity 44.9 cm/s MV Mean Gradient 1.0 mmHg Mitral E Point Velocity 49.4 cm/s Mitral A Point Velocity 40.0 cm/s Mitral E to A Ratio 1.2 MV PHT Velocity 67.9 cm/s MV Deceleration Liberty 201.0 cm/s MV Pressure Half Time 101.3 ms MV Area PHT 2.2 cm MV Deceleration Time 324.0 ms PV Peak Velocity 82.7 cm/s PV Peak Gradient 2.7 mmHg PV Mean Velocity 56.7 cm/s PV Mean Gradient 2.0 mmHg PV Velocity Time Integral 15.3 cm LV E' Lateral Velocity 17.4 cm/s Mitral E to LV E' Lateral Ratio 2.8 LV E' Septal Velocity 10.9 cm/s Mitral E to LV E' Septal Ratio 4.5
--- NOTE | 2018-02-04 12:05 | SOCIAL WORKER PROG NOTE PSYCH ---
Social Work Progress Note Progress Note Tristan was in his room resting. Reported he came in due to increased stress (too many problems). I tried to explore what some of those stressors were? Housing? He said he has a place to live. Reports being able to stay at his Sister Syeda. He is advocating to leave the hospital right now, stating he has gotten all the benefit needed from this process and he is feeling better now. I asked about him feeling homicidal as the crisis report indicated that he wanted to kill someone. He said he didn't want to kill anyone, but he wanted to hurt someone. I asked for specifics. He said he wanted to hurt "People in general. " I asked if there was anyone inparticular? He said he didn't want to "shout names out." He then said "I've left it behind me now." He said being here has helped him calm down. He also said he didn't want to end up in [facility]. I asked if he had been incarcerated before? He said around 2001 he was in for possession/ selling narcotics. Patient suffers from Tourette's and had some uncontrollable grunts and outbursts while meeting. Reports it's been worse and he feels bad as he feels it's effecting other patients on the unit. Dr. Contreras attempted to call his sister and another family member to discuss housing, but he was not able to get through. We will not push the d/c back due to lack of collateral. Intake is scheduled for Friday at [facility] in [place]. Tristan ended up discharging this afternoon.
[2018-02-04] MEDS ORDERED: FLUPHENAZINE HCL5 M1 PO (13:28)
[2018-02-04] MEDS ORDERED: VALIUM10 M1 PO (13:28)
--- NOTE | 2018-02-04 13:31 | Patient Discharge Instructions ---
See Addendum Psych Discharge Inst General Discharge Information Reason for Admission: thoughts of hurting people (no one in particular) Psy Discharge Primary Diag+ Unspecified Depressive Di Psy Discharge Secondary Diag+ Cocaine Use Diusorder Summary Tests/Major Procedures no significant abnormalities Studies Pending at DC: None Patient Instructions Contact Information Your Psychiatrist on [facility] was Diane AMARAL,Ramses * If you are experiencing an emergency related to this hospitalization, please call [phone] to contact the treating psychiatrist or the psychiatrist-on- call. * To Request a copy of your medical records, please contact the Medical Records Department at [phone]. * To request results of studies pending at the time of discharge, please call [phone]. * Continue your Medications until directed to stop by your Healthcare provider. General Medication Information Please continue to take your new medications and your continued home medications , unless otherwise indicated on your discharge medication list, or unless directed by your MD or AUTOMATIC PROFILE SHAPER OPERATOR to stop them. Special Instructions Diet Regular Activity Normal - Tobacco Use Treatment Offered Post DC Medications Offered: Not Applicable Post DC Tobacco Treatment Plan: Not Applicable - EtOH/Drug Use D/O Treatment Offered Post DC Medications Offered: Med Not Indicated for D/O Post DC EtOH/SubAbuse TX Plan: Refused Post DC Tx Pgm Metabolic Screening Patient on a neuroleptic(s) . Enter below results for Hemoglobin A1C, and lipid panel if obtained during the last 365 days. BMI: 18.400 Blood Pressure: 142/70 Laboratory Results From [facility] (If applicable): Fluphenazine started on regular regiment on day of discharge Pt. refused to stay another night to have fasting lipids and HbA1c done Advance Directives Does the Patient have Medical Advance Directives No/Refused further info Does Pt have Psychiatric Advance Directives? No/Refused further info Does Patient have a Designated Surrogate Decision Maker: No Information About Psychiatric Advance Directives Provided? Refused Discharge Plan Post Hospital Treatment Plan: [facility]
--- NOTE | 2018-02-04 14:05 | CP SOUTH PROGRESS NOTE PSYCH ---
Psych (Inpt) Progress Note Progress Note Mental Status Examination The patient was steady on his feet, Young thin black male, Cooperative, increased psychomotor activity, patient shouts certain words including sometimes obscenities (reportedly was diagnosed with Tourette's (??)( ? cocaine -induced tic disorder) Normal speech except when he suddenly shouts certain words as part of his vocal tic disorder Constricted affect, reports feeling depressed and anxious, denied thoughts of suicide today Denied thoughts of homicide today, denied hallucinations Denied feeling paranoid and there were no delusions during the interview, seem to be coherent, there was no thought disorder, partial insight Judgment depends on sobriety Alert and oriented to time, place, and person. No significant difficulties with information processing or attention and concentration No significant impairment in short-term memory Assessment: A 32-year-old single black male who was admitted because of reporting thoughts of wanting to hurt someone. The patient had no specific person in mind. He has been using drugs and has been homeless living on the streets recently. Diagnosis(es): F32.9 Unspecified Depressive Disorder F95.9 Unspecified Tic Disorder (? Cocaine-induced Tic Disorder vs. possibly F95.2 ? Tourette's Disorder) F14.20 Stimulant Use Disorder, Cocaine, Severe F11.20 Opioid Use Disorder, Moderate F10.20 Alcohol Use Disorder, Mild F12.20 Cannabis Use Disorder, Mild Treatment Plan: Discharge home wanting to hurt someone. The patient had no specific person in mind. He has been using drugs and has been homeless living on the streets recently. - Include all active medical diagnosis that require tx DSM 5 Diagnosis(es): F32.9 Unspecified Depressive Disorder F95.9 Unspecified Tic Disorder (? Cocaine-induced Tic Disorder vs. possibly F95.2 ? Tourette's Disorder) F14.20 Stimulant Use Disorder, Cocaine, Severe F11.20 Opioid Use Disorder, Moderate F10.20 Alcohol Use Disorder, Mild F12.20 Cannabis Use Disorder, Mild - Initial Tx Plan for Active Psych & Medical Conditions Treatment Plan: Inpatient psychiatric care with 15 minute checks for safety Biopsychosocial assessment, collateral information and aftercare planning by social work The patient had an EKG, echocardiogram, and a cardiology consult because of an ST elevation in his EKG which was present in previous EKGs Sertraline 50 mg every morning Fluphenazine 2.5 mg as needed every 6 hours for vocal tics PRN Ativan for anxiety/agitation/insomnia - Initial Tx Plan for Active Psych & Medical Conditions Treatment Plan: Inpatient psychiatric care with 15 minute checks for safety Biopsychosocial assessment, collateral information and aftercare planning by social work The patient had an EKG, echocardiogram, and a cardiology consult because of an ST elevation in his EKG which was present in previous EKGs Sertraline 50 mg every morning Fluphenazine 2.5 mg as needed every 6 hours for vocal tics PRN Ativan for anxiety/agitation/insomnia
--- NOTE | 2018-02-04 14:05 | DISCHARGE SUMMARY REPORT-PSYCH ---
Visit Information Visit Dates/Diagnosis' Admission Date: 02/02/18 Discharge Date: 02/04/18 Reason for Admission: thoughts of hurting people (no one in particular) Psy Discharge Primary Diag: Unspecified Depressive Di Psy Discharge Secondary Diag: Cocaine Use Diusorder Hospital Course Significant Lab Findings: There were no significant lab abnormalities. Course Complications: The patient did not have any complications while he was on the inpatient psychiatric unit. Consultations: Patient had a history and physical examination as well as a cardiology consult when he was on the inpatient psychiatric unit. Allergies: Coded Allergies: NO KNOWN ALLERGIES (NONE 02/02/18) Discharge HBIPS - Tobacco Use Treatment Offered - EtOH/Drug Use D/O Treatment Offered Metabolic Screening - Screen if on a Neuroleptic Medication - Metabolic screening should include: - Blood Pressure, BMI, Glucose or Hgb A1c, & a - Lipid profile from within the past 365 days. Discharge Instructions General Discharge Information Discharge Diet Regular Discharge Activity Normal Referrals Ordered Referrals Provider Referral 02/06/18 For Groups: [[facility]] [facility] Intake 02/06/18 1:40pm [address] [place] [address] Prescriptions Stop taking the following medications: Duloxetine HCl (Duloxetine HCl) 60 MG CAPSULE.DR ORAL DAILY Qty = 60 Diazepam (Diazepam) 5 MG TABLET ORAL TAKE AT BEDTIME Qty = 75 Diazepam (Valium) 5 MG TABLET ORAL Every Morning Cyclobenzaprine HCl (Cyclobenzaprine HCl) 10 MG TABLET ORAL Every Morning Qty = 30 Carbamide Peroxide (Carbamide) 6.5 % DROPS OTIC TWICE DAILY Days = 7 Start taking the following new medications: Fluphenazine HCl (Fluphenazine HCl) 5 MG TABLET 5 Milligram ORAL AT BEDTIME Qty = 30 No Refills Comments: Last Taken:TO START TONIGHT AT HOME Time: Diazepam (Valium) 10 MG TABLET 1 Tablet ORAL Every night as needed Qty = 30 No Refills Comments: Last Taken:TO START AT HOME Time: Studies Pending at Discharge None
--- NOTE | 2018-02-04 14:55 | SOCIAL WORKER PROG NOTE PSYCH ---
Social Work Progress Note Faxed Referral(s) Referred To: [facility] Transition of Care Documents sent: Health Summary Faxed to: [facility] [place] Fax #: [phone] Faxed by: Fifi Dutta Date faxed: 02/04/18 Time Faxed: [phone]
== END 2018-02-04 14:25 | DRG 754 ==
LOC: ERH 09:33 → CP SOUTH 02-02 12:22 → ERHI 02-02 12:22 → ENTRNSPT 02-02 12:45 → EDTRNSPTSTS 02-02 12:50 → EDTRNSPT 02-02 12:50 → CP SOUTH 02-02 12:58 → CMPTRNSPT 02-02 13:02 → CP SOUTH 02-04 14:25
PROVIDERS: Emergency Medicine
DX: F32.9 Major depressive disorder, single episode, unspecified (principal); F14.90 Cocaine use, unspecified, uncomplicated
CPT/HCPCS: 36415; 80307; 81001; 93005; 93010; 93306; G0480